=== PATIENT | male | born 1950 | race Caucasian/White ===

== ENCOUNTER → 2016-09-23 | Outpatient (CLI) | payer OTHER, MEDICARE ==
[~2016-09-23] MED LIST: ATV1 PO; ATV5 PO; FINA5TAB PO; PARO1TAB27 PO
[2016-09-23 18:20] LABS: BASO % 0.4 %; BASO ABS # 0.03 K/uL (0-0.2); COMPLETE YES; EOS % 1.7 %; HEMATOCRIT 46.1 % (42-52); IG% 0.3 %; LYMPH % 20.7 %; LYMPH ABS # 1.59 K/uL (1.2-3.4); MEAN CELL VOLUME 88.8 fL (80-100); MEAN CORPUSCULAR HEMOGLOBIN 31.4 pg (25-34); MEAN CORPUSCULAR HGB CONC 35.4 g/dl (32-36); MEAN PLATELET VOLUME 9.5 fL (7.4-10.4); MONO % 9.8 %; NEUT % 67.1 %; PLATELET COUNT 205 K/uL (130-400); RED BLOOD COUNT 5.19 M/uL (4.7-6.1); WHITE BLOOD COUNT 7.68 K/uL (4.8-10.8)
[2016-09-23 18:31] LABS: BLOOD UREA NITROGEN 13 mg/dl (7-18); BUN/CREATININE RATIO 11.4 (10-20); CALCIUM 8.7 mg/dl (8.5-10.1); CARBON DIOXIDE 29 mmol/L (21-32); CHLORIDE 105 mmol/L (98-107); CHOLESTEROL 220 mg/dl (0-200); GLUCOSE 95 mg/dl (70-99); POTASSIUM 4.2 mmol/L (3.5-5.1); SODIUM 140 mmol/L (136-145); TRIGLYCERIDES 200 mg/dl (0-150); VERY LOW DENSITY LIPOPROT CALC 40 mg/dl
[2016-09-23 18:42] LABS: ALB/GLOB RATIO 1.1 (0.9-2); ALKALINE PHOSPHATASE 93 U/L (45-117); ALT/SGPT 19 U/L (12-78); AST/SGOT 16 U/L (15-37); CHOLESTEROL/HDL RATIO 6.3; HDL CHOLESTEROL 35 mg/dl
== END | disposition home or self-care (01) ==
LOC: C.LABSPEC 17:57
PROVIDERS: ATTEND Internal Medicine
DX: R53.83 Other fatigue (principal); E78.5 Hyperlipidemia, unspecified

== ENCOUNTER → 2016-10-01 | Outpatient (CLI) | payer OTHER, MEDICARE | END | disposition home or self-care (01) | LOC: C.LAB 13:04 | PROVIDERS: ATTEND Urology | DX: R97.20 Elevated prostate specific antigen [PSA] (principal); N40.1 Benign prostatic hyperplasia with lower urinary tract symptoms ==

== ENCOUNTER → 2016-10-17 | Outpatient (CLI) | payer OTHER, MEDICARE | END | disposition home or self-care (01) | LOC: C.LABSPEC 12:42 | PROVIDERS: ATTEND Internal Medicine | DX: Z12.11 Encounter for screening for malignant neoplasm of colon (principal) ==

== ENCOUNTER → 2017-04-11 | Outpatient (CLI) | payer OTHER, MEDICARE | END | disposition home or self-care (01) | LOC: C.LAB 14:07 | PROVIDERS: ATTEND Urology | DX: N40.1 Benign prostatic hyperplasia with lower urinary tract symptoms (principal) ==

== ENCOUNTER → 2017-09-13 | Outpatient (CLI) | payer OTHER, MEDICARE ==
[2017-09-13 13:50] LABS: ALBUMIN 3.5 gm/dl (3.4-5.0); ALT/SGPT 25 U/L (12-78); AST/SGOT 20 U/L (15-37); BLOOD UREA NITROGEN 17 mg/dl (7-18); CARBON DIOXIDE 30 mmol/L (21-32); CHOLESTEROL 216 mg/dl (0-200); CREATININE 1.19 mg/dl (0.60-1.40); GLUCOSE 94 mg/dl (70-99); POTASSIUM 4.3 mmol/L (3.5-5.1); SODIUM 139 mmol/L (136-145)
[2017-09-13 13:53] LABS: ALKALINE PHOSPHATASE 78 U/L (45-117); LDL CHOLESTEROL (DIRECT) 144 mg/dl
== END | disposition home or self-care (01) ==
LOC: C.LABSPEC 12:40
PROVIDERS: ATTEND Internal Medicine
DX: I10 Essential (primary) hypertension (principal); E78.5 Hyperlipidemia, unspecified

== ENCOUNTER → 2017-10-05 | Outpatient (CLI) | payer OTHER, MEDICARE | END | disposition home or self-care (01) | LOC: C.LAB 11:33 | PROVIDERS: ATTEND Urology | DX: N52.9 Male erectile dysfunction, unspecified (principal) ==

== ENCOUNTER 2020-10-09 06:34 | Inpatient (IN) ==
[2020-10-09] MEDS ORDERED: ONDANSETRON INJ 2 MG/ML 2 ML VIAL IV STA (07:31)
[2020-10-09] MEDS ORDERED: HYDROmorphone INJ 0.5 MG/0.5 ML SYR IV PRN ×2 (07:31→11:30)
--- NOTE | 2020-10-09 07:36 | Emergency Department Note ---
History of Present Illness General Chief complaint: Abdominal Pain Stated complaint: ABD PAIN,HERNIA Time Seen by Provider: 10/09/20 07:04 Source: patient History of Present Illness Maximum Pain Intensity: 9 70-year-old male with a past medical history of an inguinal hernia hyperlipidemia, BPH, hypertension, history of prior SBO requiring surgery 5 years ago presents for evaluation of abdominal pain. Patient states he was in his sleeping when he woke up at 4 AM felling like he had to have a BM and left and right lower quadrant pain, he said at that time he felt feverish and had chills he states he has not had a bowel movement in 2 days and has not passed g as in a day. He has not taken anything for the pain, he states he regularly takes fiber supplements. He describes the pain is intermittent sharp stabbing pain is left lower and right lower quadrants, there is no radiation. He states his hernia is painful when his abdomen is painful, it is still reducible. He states he is currently painful and is requesting pain medication. Patient specifically denies chest pressure, chest pain, shortness of breath, motor symptoms, sensory symptoms, history of significant weight loss, We obtained labs and a chest x-ray yesterday as he was receiving preop evaluation by Dr. Busby for an upcoming scheduled surgery to repair his hernia. Patient states his thinks that his current presentation is similar to his prior SBO. Home Medications Medication Instructions Recorded Confirmed Type lorazepam [Ativan] 1 mg PO QPM 05/10/19 10/09/20 History losartan [Cozaar] 50 mg PO DAILY 05/10/19 10/09/20 History multivitamin 1 tab PO DAILY 05/10/19 10/09/20 History omega 7-tvv-bjl-fish oil [Fish Oil] 1 cap PO DAILY 05/10/19 10/09/20 History paroxetine HCl [Paxil] 40 mg PO DAILY 05/10/19 10/09/20 History sildenafil [Viagra] 50 mg PO DAILY PRN 05/10/19 10/09/20 History triamterene-hydrochlorothiazid 0.5 tab PO DAILY 05/10/19 10/09/20 History [Maxzide-25mg] finasteride 5 mg tablet 5 mg PO DAILY #90 tab 03/20/20 10/09/20 Rx aspirin 81 mg PO DAILY 10/09/20 10/09/20 History Allergies Allergy/AdvReac Type Severity Reaction Status Date / Time Penicillins Allergy Mild RASH Verified 10/09/20 07:27 Past Med/Surg History Medical History Anxiety Depression Essential hematuria Gross hematuria Hypertension Inguinal hernia, right Surgical History History of prostate surgery Hx of oral surgery Hx of resection of small bowel 2nd to SBO; required open laparotomy Hx of tonsillectomy Family History Father Hypertension Prostate cancer Mother Breast cancer Other Heart disease Social History Smoking Status: Former smoker Age Started Using Tobacco: 13; Age Quit Using Tobacco: 33; packs per day: 0.25; Second Hand Exposure: No; Do You Dip or Chew Tobacco: No; Tobacco Cessation Education Requested by Patient: No Hx Alcohol Use: No Hx Substance Use: No Preferred Language: Nepali Communication Ability: Effective Medical Office Coordinator Required: No Beliefs That Will Affect Care: None marital status: Current Living Situation: Spouse current occupational status: retired current occupation: registered nurse Other Information That Helps Us Care for You: No Feels Safe at Home: Yes Assistive Devices: Glasses Review of Systems See HPI for pertinent positives & negatives. Physical Exam Vital Signs Vital Signs - 24 hr 10/09/20 06:40 10/09/20 07:39 10/09/20 08:14 Temperature 36.6 C Temperature Source Temporal Artery Scan Pulse Rate 56 L 65 65 Pulse Rate from SpO2 Sensor 66 66 Respiratory Rate 16 24 20 Respiratory Effort / Characteristics Non-Labored Spontaneous Respiratory Depth Normal Blood Pressure 155/85 H 148/84 H 162/86 H Blood Pressure Mean 108 105 111 Pulse Oximetry 99 97 97 Oxygen Delivery Method Room Air Room Air Room Air Sepsis Recent Fever Within 48 Hours No Sepsis New/Unexplained Change in Mental Status N/A Sepsis Action Taken by Nursing No Action Required 10/09/20 08:30 10/09/20 09:16 10/09/20 09:30 Temperature Temperature Source Pulse Rate 68 72 73 Pulse Rate from SpO2 Sensor 67 72 74 Respiratory Rate 23 20 22 Respiratory Effort / Characteristics Respiratory Depth Blood Pressure 134/95 146/76 H 135/84 Blood Pressure Mean 108 99 101 Pulse Oximetry 97 96 97 Oxygen Delivery Method Room Air Room Air Room Air Sepsis Recent Fever Within 48 Hours Sepsis New/Unexplained Change in Mental Status Sepsis Action Taken by Nursing 10/09/20 10:00 10/09/20 10:30 10/09/20 11:28 Temperature Temperature Source Pulse Rate 71 70 73 Pulse Rate from SpO2 Sensor 71 70 72 Respiratory Rate 20 20 22 Respiratory Effort / Characteristics Respiratory Depth Blood Pressure 147/88 H 164/92 H 140/80 Blood Pressure Mean 107 116 100 Pulse Oximetry 95 97 98 Oxygen Delivery Method Room Air Room Air Room Air Sepsis Recent Fever Within 48 Hours Sepsis New/Unexplained Change in Mental Status Sepsis Action Taken by Nursing General: Lying in bed clutching his abdomen endorsing pain HEENT: Normocephalic atraumatic Neck: Normal to visual inspection, trachea midline Cardiac: Regular rate and rhythm I did not appreciate significant murmurs rubs or gallops, normal S1, normal S2, negative pedal edema, negative calf tenderness Respiratory: Clear to auscultation bilaterally with symmetrical chest expansion I did not appreciate significant wheezes, rales, rhonchi, no increased work of breathing GI: Soft, tender in the bilateral lower quadrants, mildly distended, no rebound, no guarding, negative [place] sign, negative CVA tenderness, palpated hernia, slightly reducible MSK: Moves all extremities, no significant peripheral edema. Skin: Normal to visual inspection, warm, dry, no rash Neuro: Alert and oriented x4, tired Psych: Calm and cooperative with the interview Course Administered Medications Lactated Ringer's (Lr) 1,000 mls @ 125 mls/hr IV .Q8H ANITHA Stop: 11/08/20 07:44 Last Admin: 10/09/20 13:39 Dose: 125 mls/hr Documented by: [id number] Infusion: 10/09/20 13:39 Dose: 125 mls/hr Documented by: [id number] Admin: 10/09/20 08:13 Dose: 125 mls/hr Documented by: [id number] Ciprofloxacin (Cipro / D5w) 400 mg in 200 mls @ 100 mls/hr IV Q12H ANITHA; Protocol Stop: 10/19/20 14:59 Last Admin: 10/09/20 14:29 Dose: 100 mls/hr Documented by: [id number] Metronidazole (Flagyl) 500 mg in 100 mls @ 100 mls/hr IV Q8H ANITHA Stop: 10/19/20 13:59 Last Admin: 10/09/20 14:23 Dose: 100 mls/hr Documented by: [id number] Discontinued Medications Hydromorphone HCl (Hydromorphone Inj 0.5 Mg/0.5 Ml Syr) 0.5 mg IV Q1H PRN PRN Reason: Pain Stop: 10/23/20 07:30 Last Admin: 10/09/20 08:13 Dose: 0.5 mg Documented by: [id number] Cefoxitin Sodium (Mefoxin) 2,000 mg in 60 mls @ 100 mls/hr IV NOW STA Stop: 10/09/20 09:20 Last Infusion: 10/09/20 09:50 Dose: 0 mls/hr Documented by: [id number] Admin: 10/09/20 09:14 Dose: 100 mls/hr Documented by: [id number] Lactated Ringer's (Lr) 500 mls @ 999 mls/hr IV .Q31M ONE Stop: 10/09/20 09:16 Last Infusion: 10/09/20 09:45 Dose: 0 mls/hr Documented by: [id number] Admin: 10/09/20 09:14 Dose: 999 mls/hr Documented by: [id number] Sodium Chloride (Nss 1000ml) 500 mls @ 999 mls/hr IV .Q31M ONE Stop: 10/09/20 10:52 Last Infusion: 10/09/20 12:10 Dose: 0 mls/hr Documented by: [id number] Admin: 10/09/20 11:27 Dose: 999 mls/hr Documented by: [id number] Ioversol (Optiray 320 125ml) 94 ml IV ONCE ONE Stop: 10/09/20 09:00 Last Admin: 10/09/20 09:00 Dose: 94 ml Documented by: [id number] Ondansetron HCl (Ondansetron Inj 2 Mg/Ml 2 Ml Vial) 4 mg IV NOW STA Stop: 10/09/20 07:32 Last Admin: 10/09/20 08:13 Dose: 4 mg Documented by: [id number] Medical Decision Making Differential Diagnosis Appendicitis, pyelonephritis, diverticulitis, UTI, obstruction, mesenteric ischemia, aortic pathology, inflammatory bowel disease, renal colic, PUD, pancreatitis, biliary pathology, hernia, volvulus, constipation, as well as other pathologies. Medical Records Attestation: I reviewed the patient's medical records. Home Medications Current Medication List: was personally reviewed by me Laboratory Data Attestation: I reviewed the patient's lab results. Result diagrams: 10/09/20 07:50 10/09/20 07:50 Lab Results 10/09/20 10/09/20 10/09/20 Range/Units 07:50 07:50 07:50 WBC 14.18 H (4.8-10.8) K/uL RBC 4.93 (4.7-6.1) M/uL Hgb 15.7 (14.0-18.0) g/dL Hct 45.3 (42-52) % MCV 91.9 (80-100) fL MCH 31.8 (25-34) pg MCHC 34.7 (32-36) g/dL RDW Std Deviation 44.6 (36.4-46.3) fL RDW Coeff of Juliana 13.3 (11.5-14.5) % Plt Count 191 (130-400) K/uL MPV 9.5 (7.4-10.4) fL Immature Gran % (Auto) 0.3 % Neut % (Auto) 89.8 % Lymph % (Auto) 5.3 % Giles % (Auto) 4.1 % Eos % (Auto) 0.4 % Baso % (Auto) 0.1 % Neut # (Auto) 12.73 H (1.4-6.5) K/uL Lymph # (Auto) 0.75 L (1.2-3.4) K/uL Giles # (Auto) 0.58 (0.11-0.59) K/uL Eos # (Auto) 0.06 (0-0.5) K/uL Baso # (Auto) 0.02 (0-0.2) K/uL Immature Gran # (Auto) 0.04 H (0.00-0.02) K/uL Sodium 141 (136-145) mmol/L Potassium 3.9 (3.5-5.1) mmol/L Chloride 106 (98-107) mmol/L Carbon Dioxide 30 (21-32) mmol/L Anion Gap 5.0 (3-11) BUN 18 (7-18) mg/dl Creatinine 1.26 (0.6-1.4) mg/dl Est Cr Clr Drug Dosing 63.9 ml/min Est GFR ( Amer) 65.6 Est GFR (Non-Af Amer) 56.6 BUN/Creatinine Ratio 14.6 (10-20) Glucose 133 H (70-99) mg/dl Lactate 2.6 H* (0.4-2.0) mmol/L Calcium 9.1 (8.5-10.1) mg/dl Total Bilirubin 0.6 (0.2-1) mg/dl AST 20 (15-37) U/L ALT 24 (12-78) U/L Alkaline Phosphatase 87 (45-117) U/L Total Protein 6.9 (6.4-8.2) gm/dl Albumin 3.5 (3.4-5.0) gm/dl Globulin 3.4 (2.5-4.0) gm/dl Albumin/Globulin Ratio 1.0 (0.9-2) Lipase 94 (73-393) U/L COVID-19 Eval Order SARS-CoV-2 (PCR) (Negative) Influenza Type A (PCR) (Neg) Influenza Type B (PCR) (Neg) RSV (RT-PCR) (Neg) 10/09/20 10/09/20 10/09/20 Range/Units 08:14 08:14 09:34 WBC (4.8-10.8) K/uL RBC (4.7-6.1) M/uL Hgb (14.0-18.0) g/dL Hct (42-52) % MCV (80-100) fL MCH (25-34) pg MCHC (32-36) g/dL RDW Std Deviation (36.4-46.3) fL RDW Coeff of Juliana (11.5-14.5) % Plt Count (130-400) K/uL MPV (7.4-10.4) fL Immature Gran % (Auto) % Neut % (Auto) % Lymph % (Auto) % Giles % (Auto) % Eos % (Auto) % Baso % (Auto) % Neut # (Auto) (1.4-6.5) K/uL Lymph # (Auto) (1.2-3.4) K/uL Giles # (Auto) (0.11-0.59) K/uL Eos # (Auto) (0-0.5) K/uL Baso # (Auto) (0-0.2) K/uL Immature Gran # (Auto) (0.00-0.02) K/uL Sodium (136-145) mmol/L Potassium (3.5-5.1) mmol/L Chloride (98-107) mmol/L Carbon Dioxide (21-32) mmol/L Anion Gap (3-11) BUN (7-18) mg/dl Creatinine (0.6-1.4) mg/dl Est Cr Clr Drug Dosing ml/min Est GFR ( Amer) Est GFR (Non-Af Amer) BUN/Creatinine Ratio (10-20) Glucose (70-99) mg/dl Lactate 2.9 H* (0.4-2.0) mmol/L Calcium (8.5-10.1) mg/dl Total Bilirubin (0.2-1) mg/dl AST (15-37) U/L ALT (12-78) U/L Alkaline Phosphatase (45-117) U/L Total Protein (6.4-8.2) gm/dl Albumin (3.4-5.0) gm/dl Globulin (2.5-4.0) gm/dl Albumin/Globulin Ratio (0.9-2) Lipase (73-393) U/L COVID-19 Eval Order [facility]Rsv at [facility] SARS-CoV-2 (PCR) NEGATIVE (Negative) Influenza Type A (PCR) Negative (Neg) Influenza Type B (PCR) Negative (Neg) RSV (RT-PCR) Negative (Neg) Imaging Data Radiologist's Impression: Abdomen/Pelvis CT 10/09/20 07:49 CT SCAN OF THE ABDOMEN AND PELVIS WITH IV CONTRAST CLINICAL HISTORY: Generalized abdominal pain. COMPARISON STUDY: Abdominal CT dated 09/08/2011. TECHNIQUE: Following the IV administration of 94 cc of Optiray 320, CT scan of the abdomen and pelvis is performed from the lung bases to the proximal femora. Images are reviewed in the axial, sagittal, and coronal planes. IV contrast was administered without complication. A small amount of oral contrast was utilized. A dose lowering technique was utilized adhering to the principles of ALARA. CT DOSE: 866.12 mGy.cm FINDINGS: Lung bases: The heart is top normal in size and without pericardial effusion. The coronary arteries are densely calcified. There is a small hiatal hernia. A 3 mm left lower lobe pulmonary nodule is seen on image #17. The lung bases are otherwise clear noting bibasilar scarring/atelectasis. Liver: The contrast-enhanced liver is normal in size, contour, and attenuation. There is no intrahepatic biliary ductal dilatation. The hepatic veins and portal veins are patent. Gallbladder: Unremarkable. Spleen: Normal in size and attenuation. Pancreas: Unremarkable. Adrenal glands: Unremarkable. Kidneys: The contrast enhanced kidneys demonstrate mild cortical atrophy and are without hydronephrosis. The kidneys enhance symmetrically. Abdominal vasculature: The abdominal aorta is normal in course and caliber noting moderate atherosclerotic calcification. Bowel: There is moderate constipation. There is focal narrowing of the colon seen at the hepatic flexure on image #201. A right inguinal hernia contains a nonobstructed segment of the sigmoid colon. There is wall thickening and pericolonic inflammation seen involving the distal descending colon and sigmoid to the level of the hernia. No bowel obstruction is identified. Enteric contrast reaches the distal small bowel. The appendix is normal as visualized. Peritoneum: There is trace free fluid in the pelvis. No intraperitoneal free air is identified. Lymphadenopathy: None. Pelvic viscera: The prostate gland is markedly enlarged and heterogeneous, measuring 7.1 cm in transverse diameter. There is median lobe hypertrophy. The bladder wall is thickened and trabeculated indicating chronic outlet obstruction. There is a 2 cm enhancing nodule identified along the right wall of the bladder seen on axial image #382. There are right larger than left inguinal hernias. The right inguinal hernia contains a nonobstructed segment of the sigmoid colon. Skeletal structures: The skeletal structures are osteopenic. There is moderate lumbosacral spondylosis. No lytic or blastic lesions are seen. IMPRESSION: 1. There is no bowel obstruction. 2. A large right inguinal hernia contains a nonobstructed segment of the sigmoid colon. 3. There is wall thickening with pericolonic inflammation seen involving the distal descending colon and throughout the sigmoid to the level of the hernia, likely representing a nonspecific colitis. Intermittent obstruction could also potentially have this appearance but is considered less likely due to the length of involvement. 4. There is a 2 cm enhancing nodule along the right wall of the bladder. This should be considered bladder cancer until proven otherwise and follow-up with urology is recommended. 5. There is focal narrowing identified within the right colon at the level of the hepatic flexure. This is not well evaluated by CT, but raises concern for a mucosal lesion. Follow-up with colonoscopy is recommended. 6. Moderate constipation. 7. Marked prostatomegaly with evidence of chronic bladder outlet obstruction. 8. Additional findings as above. ACT 112: Positive. There are findings on this exam that require communication between the performing entity and the patient following Patient Test Result Information Act ([place] Act 112) guidelines. Electronically signed by: Malcolm Fowler M.D. 10/09/2020 9:29 AM ECG Data Attestation: I personally reviewed and interpreted this ECG as follows: Indication: + abdominal pain Rate (beats per minute): 63 Rhythm: + normal sinus ECG Intervals/blocks: + Normal QRS and + Normal QT-c ECG [place]: + Normal ECG ST segments: + Normal ST segments ECG Findings: no PACs and no PVCs Comparison ECG Date: no prior available Blood Pressure Blood Pressure Findings: Elevated blood pressure Blood Pressure Disposition: further management by hospitalist MDM Narrative I evaluated this patient with the resident, Fredi Jung MD. This patient was evaluated and appeared to be in no significant distress. IV access was obtained and laboratory work was drawn. An order was placed for cardiac monitoring. The patient was noted to be in a normal sinus rhythm at 65 bpm. IV hydration was initiated. The patient was medicated with IV Dilaudid and Zofran. Patient did have a successful bowel movement in the emergency department prior to any intervention. He denies any gross blood in the stool. CT imaging of the abdomen pelvis was performed. There is evidence of a bladder nodule, a focal narrowing of the right hemicolon, a colitis of the descending colon and a large right inguinal hernia with a loop of sigmoid that is nonobstructive. Patient is noted to have a elevated lactate and WBC. He did receive 2 g of IV Mefoxin. Patient has no evidence of a high-grade bowel obstruction as he has no vomiting and is passing stool/gas. His abdomen is soft to my exam. Case was discussed with the hospitalist service who will evaluate the patient for admission and further management. Patient was educated to the findings and agrees with the plan for admission. Impression & Plan Elevated serum lactate dehydrogenase, SBO (small bowel obstruction), Colonic stricture, Inguinal hernia, right, Mass of bladder Discharge Plan Visit Data Chief Complaint: Abdominal Pain Stated Complaint: ABD PAIN,HERNIA ED Provider: Ladonna Brown ED Midlevel Provider: John Jung I. Discharge Problem: Elevated serum lactate dehydrogenase, SBO (small bowel obstruction), Colonic stricture, Inguinal hernia, right, Mass of bladder Patient Disposition: Admitted As Inpatient Discharge Instructions Interventions: ED Discharge Assessment Last Done: 10/09/20 13:11 Resident Activity Tracking Resident Involvement: Resident Care Provided Care Provided: Adult Hospital Medicine
[2020-10-09 08:09] LABS: Basophils # (auto) 0.02 K/uL (0-0.2); Basophils % (auto) 0.1 %; Eosinophils # (auto) 0.06 K/uL (0-0.5); Eosinophils % (auto) 0.4 %; Hematocrit (blood only) 45.3 % (42-52); Hemoglobin 15.7 g/dL (14.0-18.0); Immature Granulocytes # (auto) 0.04 K/uL (0.00-0.02); Immature Granulocytes % (auto) 0.3 %; Lymphocytes # (auto) 0.75 K/uL (1.2-3.4); Lymphocytes % (auto) 5.3 %; Mean Corpuscular Hemoglobin 31.8 pg (25-34); Mean Corpuscular Hgb Conc 34.7 g/dL (32-36); Mean Corpuscular Volume 91.9 fL (80-100); Mean Platelet Volume 9.5 fL (7.4-10.4); Monocytes # (auto) 0.58 K/uL (0.11-0.59); Monocytes % (auto) 4.1 %; Neutrophils # (auto) 12.73 K/uL (1.4-6.5); Neutrophils % (auto) 89.8 %; Platelet Count 191 K/uL (130-400); RDW Coefficient of Variation 13.3 % (11.5-14.5); RDW Standard Deviation 44.6 fL (36.4-46.3); Red Blood Count 4.93 M/uL (4.7-6.1); White Blood Count 14.18 K/uL (4.8-10.8)
[2020-10-09] MEDS: LACTATED RINGER'S 1,000 ML IV SCH ×3 (08:13→21:34)
[2020-10-09 08:27] LABS: POC Urine Bilirubin Negative (Negative); POC Urine Blood Negative (Negative); POC Urine Glucose Normal (Normal); POC Urine Ketones Negative (Negative); POC Urine Leukocytes Negative (Negative); POC Urine Protein Negative (Negative); POC Urine Urobilinogen Normal (Normal)
[2020-10-09 08:31] LABS: Appearance Urine Clear (Clear); Bilirubin Urine Negative (Negative); Blood Urine Negative (Negative); Color Urine Dark Yellow; Glucose Urine UA Negative (Negative); Ketones Urine Trace (Negative); Leukocyte Esterase Urine Negative (Negative); Nitrite Urine Negative (Negative); Protein Urine Negative (Negative); Specific Gravity Urine 1.015 (1.000-1.030); Urobilinogen Urine Negative (Negative)
[2020-10-09 08:40] LABS: Albumin Level 3.5 gm/dl (3.4-5.0); BUN Creatinine Ratio 14.6 (10-20); Calcium 9.1 mg/dl (8.5-10.1); Creatinine Clr Calc Pharmacy 63.9 ml/min; Est GFR (African American) 65.6; Est GFR (Non-African American) 56.6; Potassium 3.9 mmol/L (3.5-5.1)
[2020-10-09 08:43] LABS: Bilirubin,Total 0.6 mg/dl (0.2-1); Globulin 3.4 gm/dl (2.5-4.0); Total Protein 6.9 gm/dl (6.4-8.2)
[2020-10-09] MEDS ORDERED: cefOXitin 2,000 MG/60 ML BAG IV STA (08:45)
[2020-10-09] MEDS ORDERED: LACTATED RINGER'S 500 ML IV ONE (08:46)
[2020-10-09] MEDS ORDERED: OPTIRAY 320 125ml IV ONE (08:59)
[2020-10-09 09:13] LABS: Influenza A virus by PCR Negative (Neg); Influenza B virus by PCR Negative (Neg); RSV by PCR Negative (Neg); SARS CoV2 RNA(COVID-19) InHosp NEGATIVE (Negative)
--- NOTE | 2020-10-09 09:30 | CT Scan Report ---
CT SCAN OF THE ABDOMEN AND PELVIS WITH IV CONTRAST CLINICAL HISTORY: Generalized abdominal pain. COMPARISON STUDY: Abdominal CT dated 09/08/2011. TECHNIQUE: Following the IV administration of 94 cc of Optiray 320, CT scan of the abdomen and pelvi s is performed from the lung bases to the proximal femora. Images are reviewed in the axial, sagittal , and coronal planes. IV contrast was administered without complication. A small amount of oral contr ast was utilized. A dose lowering technique was utilized adhering to the principles of ALARA. CT DOSE: 866.12 mGy.cm FINDINGS: Lung bases: The heart is top normal in size and without pericardial effusion. The coronary arteries a re densely calcified. There is a small hiatal hernia. A 3 mm left lower lobe pulmonary nodule is seen on image #17. The lung bases are otherwise clear noting bibasilar scarring/atelectasis. Liver: The contrast-enhanced liver is normal in size, contour, and attenuation. There is no intrahepa tic biliary ductal dilatation. The hepatic veins and portal veins are patent. Gallbladder: Unremarkable. Spleen: Normal in size and attenuation. Pancreas: Unremarkable. Adrenal glands: Unremarkable. Kidneys: The contrast enhanced kidneys demonstrate mild cortical atrophy and are without hydronephros is. The kidneys enhance symmetrically. Abdominal vasculature: The abdominal aorta is normal in course and caliber noting moderate atheroscle rotic calcification. Bowel: There is moderate constipation. There is focal narrowing of the colon seen at the hepatic flex ure on image #201. A right inguinal hernia contains a nonobstructed segment of the sigmoid colon. The re is wall thickening and pericolonic inflammation seen involving the distal descending colon and sig moid to the level of the hernia. No bowel obstruction is identified. Enteric contrast reaches the dis lizzie small bowel. The appendix is normal as visualized. Peritoneum: There is trace free fluid in the pelvis. No intraperitoneal free air is identified. Lymphadenopathy: None. Pelvic viscera: The prostate gland is markedly enlarged and heterogeneous, measuring 7.1 cm in transv erse diameter. There is median lobe hypertrophy. The bladder wall is thickened and trabeculated indic ating chronic outlet obstruction. There is a 2 cm enhancing nodule identified along the right wall of the bladder seen on axial image #382. There are right larger than left inguinal hernias. The right i nguinal hernia contains a nonobstructed segment of the sigmoid colon. Skeletal structures: The skeletal structures are osteopenic. There is moderate lumbosacral spondylosi s. No lytic or blastic lesions are seen. IMPRESSION: 1. There is no bowel obstruction. 2. A large right inguinal hernia contains a nonobstructed segment of the sigmoid colon. 3. There is wall thickening with pericolonic inflammation seen involving the distal descending colon and throughout the sigmoid to the level of the hernia, likely representing a nonspecific colitis. Int ermittent obstruction could also potentially have this appearance but is considered less likely due t o the length of involvement. 4. There is a 2 cm enhancing nodule along the right wall of the bladder. This should be considered bl adder cancer until proven otherwise and follow-up with urology is recommended. 5. There is focal narrowing identified within the right colon at the level of the hepatic flexure. Th is is not well evaluated by CT, but raises concern for a mucosal lesion. Follow-up with colonoscopy i s recommended. 6. Moderate constipation. 7. Marked prostatomegaly with evidence of chronic bladder outlet obstruction. 8. Additional findings as above. ACT 112: Positive. There are findings on this exam that require communication between the performing entity and the patient following Patient Test Result Information Act ([place] Act 112) guidelines. Electronically signed by: Malcolm Fowler M.D. 10/09/2020 9:29 AM
[2020-10-09] MEDS ORDERED: SODIUM CHLORIDE 0.9% 1000ML 500 ML IV ONE (10:22)
--- NOTE | 2020-10-09 10:56 | History & Physical Report ---
Date of Service October 09, 2020 Assessment & Plan (1) Inguinal hernia, right: History would suggest that perhaps he had transient incarceration of the sigmoid colon in his right inguinal hernia that spontaneously resolved over several hours. This perhaps led to transient ischemia of the distal colon leading to mild inflammation/colitis. The hernia is now reducible and his pain is markedly improved. CT abd/pelvis and mild lactic acidosis suggests he likely had transient ischemia. I do not think his colonic inflammation is infectious in etiology; history does not suggest such. Will keep him NPO, give him IV fluids, IV pain meds prn, and will ask general surgery to see in consult. Given the mild colitis will cover with IV cipro/flagyl. He received 1 dose of cefoxitin in the ER. (2) Lactic acidosis: see above (3) Colitis: Suspect ischemia rather than infectious. See above. Repeat lactate pending. NPO, IVF. (4) Abnormal CT scan, colon: Mucosal lesion in hepatic flexure?? Will need endoscopic evaluation in the near future for such. (5) Hyperlipidemia: Hold fish oil (6) BPH loc w/o ur obs/LUTS: Cont outpatient meds [place] [facility] [place] [facility] (7) Mass of bladder: Will need nonemergent cystoscopy (8) Hypertension: hold HCTZ continue losartan (9) DVT prophylaxis: lovenox daily starting tomorrow updated at bedside History of Present Illness Chief Complaint: abdominal pain Primary Care Provider: Saeed Trujillo MD Pleasant 70yo male with HTN and BPH along with long-standing right-sided inguinal hernia who presented this am after developing severe RLQ and LLQ abdominal pain this am at 0400. Pain awoke him from sleep. Pain was sharp, intense, and came "in waves." The pain was worst over the inguinal hernia on the right. The hernia was "firm" to touch and he tried pushing the bowel up into the abdomen. It was difficult initially but ultimately it seemed to slide back up. He had diaphoresis, chills, subjective fever and nausea. Never had emesis. He felt like he had to have a bowel movement and went back/forth from bed to bathroom without any success. He finally came to the ER this am to be evaluated. While being worked up he had a large liquid, nonbloody bowel movement. Following this and IV dilaudid his pain is resolved and he "feels nearly back to normal." Coincidentally he saw Dr Rogelio Garcia yesterday in gen surgery clinic for the right inguinal hernia and was to have inguinal hernia repair w/ mesh later this month. Otherwise he has been in his usual health with no GI or complaints. 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 Allergies Allergy/AdvReac Type Severity Reaction Status Date / Time Penicillins Allergy Mild RASH Verified 10/09/20 07:27 Home Medications Medication Instructions Recorded Confirmed Type lorazepam [Ativan] 1 mg PO QPM 05/10/19 10/09/20 History losartan [Cozaar] 50 mg PO DAILY 05/10/19 10/09/20 History multivitamin 1 tab PO DAILY 05/10/19 10/09/20 History omega 0-xyx-ljt-fish oil [Fish Oil] 1 cap PO DAILY 05/10/19 10/09/20 History paroxetine HCl [Paxil] 40 mg PO DAILY 05/10/19 10/09/20 History sildenafil [Viagra] 50 mg PO DAILY PRN 05/10/19 10/09/20 History triamterene-hydrochlorothiazid 0.5 tab PO DAILY 05/10/19 10/09/20 History [Maxzide-25mg] finasteride 5 mg tablet 5 mg PO DAILY #90 tab 03/20/20 10/09/20 Rx aspirin 81 mg PO DAILY 10/09/20 10/09/20 History Past Med/Surg History Medical History Anxiety Depression Essential hematuria Gross hematuria Hypertension Inguinal hernia, right Surgical History History of prostate surgery Hx of oral surgery Hx of resection of small bowel 2nd to SBO; required open laparotomy Hx of tonsillectomy Family History Father Hypertension Prostate cancer Mother Breast cancer Other Heart disease Social History Smoking Status: Former smoker Age Started Using Tobacco: 13; Age Quit Using Tobacco: 33; packs per day: 0.25; Second Hand Exposure: No; Do You Dip or Chew Tobacco: No; Tobacco Cessation Education Requested by Patient: No Hx Alcohol Use: No Hx Substance Use: No Preferred Language: Bulgarian Communication Ability: Effective Hog Room Supervisor Required: No Beliefs That Will Affect Care: None marital status: Current Living Situation: Spouse current occupational status: retired current occupation: registered nurse Other Information That Helps Us Care for You: No Feels Safe at Home: Yes Assistive Devices: None Review of Systems Constitutional: + fever (subjective), + chills, + sweats and + fatigue (last few days ); no weight loss Eyes: no worsening vision Ear, Nose, Mouth, Throat: no loss of taste or smell Respiratory: no dyspnea Cardiovascular: no chest pain Gastrointestinal: + abdominal pain, + nausea and + diarrhea/loose stools; no vomiting and no blood in stools Genitourinary: no dysuria Musculoskeletal: no joint pain Integumentary: no rash Neurologic: no localized weakness and no loss of sensation Psychiatric: no depression Endocrine: denies diabetes Hematologic / Lymphatic: no easy bleeding Physical Exam Constitutional: well developed and well nourished; no acute distress and no altered mental status Eyes: PERRL ENMT: external ear and nose normal, oropharynx normal Neck: trachea midline, no thyromegaly Respiratory: normal respiratory effort, lungs clear to auscultation Cardiovascular: Rate/Rhythm: regular rate and regular rhythm Heart Sounds: normal S1 and normal S2; no murmur Vessels: posterior tibial pulses present and dorsalis pedis pulses present; no JVD Extremities: no edema Gastrointestinal (Abdomen): Inspection/Auscultation: + abdomen distended (mild) and normal bowel sounds Percussion/Palpation: + abdomen tender (RLQ, scant LLQ) and + hernia (right inguinal - reducible; mildly tender over this region); no guarding, abdomen not rigid and no hepatosplenomegaly Musculoskeletal: no cyanosis or clubbing, extremities motor strength 5/5 Skin: no rashes, warm and dry Neurologic: deep tendon reflexes 2+ bilaterally and moves all extremities Psychiatric: A+Ox3, euthymic affect Lymphatic: no cervical lymphadenopathy Results & Data Results & Data ([facility]) Vital Signs (Past 12 Hours) Vital Signs Temp Pulse Resp BP Pulse Ox 04/08/21 09:30 73 22 135/84 97 10/09/20 09:16 72 20 146/76 H 96 10/09/20 08:30 68 23 134/95 97 10/09/20 08:14 65 20 162/86 H 97 10/09/20 07:39 65 24 148/84 H 97 10/09/20 06:40 36.6 C 56 L 16 155/85 H 99 Laboratory Results Laboratory Results - last 24 hr 10/09/20 10/09/20 10/09/20 07:50 07:50 07:50 WBC 14.18 H RBC 4.93 Hgb 15.7 Hct 45.3 MCV 91.9 MCH 31.8 MCHC 34.7 RDW Std Deviation 44.6 RDW Coeff of Juliana 13.3 Plt Count 191 MPV 9.5 Immature Gran % (Auto) 0.3 Neut % (Auto) 89.8 Lymph % (Auto) 5.3 Woods % (Auto) 4.1 Eos % (Auto) 0.4 Baso % (Auto) 0.1 Neut # (Auto) 12.73 H Lymph # (Auto) 0.75 L Woods # (Auto) 0.58 Eos # (Auto) 0.06 Baso # (Auto) 0.02 Immature Gran # (Auto) 0.04 H Sodium 141 Potassium 3.9 Chloride 106 Carbon Dioxide 30 Anion Gap 5.0 BUN 18 Creatinine 1.26 Est Cr Clr Drug Dosing 63.9 Est GFR ( Amer) 65.6 Est GFR (Non-Af Amer) 56.6 BUN/Creatinine Ratio 14.6 Glucose 133 H Lactate 2.6 H* Calcium 9.1 Total Bilirubin 0.6 AST 20 ALT 24 Alkaline Phosphatase 87 Total Protein 6.9 Albumin 3.5 Globulin 3.4 Albumin/Globulin Ratio 1.0 Lipase 94 Urine Color Urine Appearance Urine pH POC Urine pH Ur Specific [place] Urine Protein POC Urine Protein Urine Glucose (UA) POC Ur Glucose (UA) Urine Ketones POC Urine Ketones Urine Blood POC Urine Blood Urine Nitrite POC Urine Nitrite Urine Bilirubin POC Urine Bilirubin Urine Urobilinogen POC Urine Urobilinogen Ur Leukocyte Esterase POC U Leukocyte Esteras COVID-19 Eval Order SARS-CoV-2 (PCR) Influenza Type A (PCR) Influenza Type B (PCR) RSV (RT-PCR) 10/09/20 10/09/20 10/09/20 08:14 08:14 09:34 WBC RBC Hgb Hct MCV MCH MCHC RDW Std Deviation RDW Coeff of Juliana Plt Count MPV Immature Gran % (Auto) Neut % (Auto) Lymph % (Auto) Woods % (Auto) Eos % (Auto) Baso % (Auto) Neut # (Auto) Lymph # (Auto) Woods # (Auto) Eos # (Auto) Baso # (Auto) Immature Gran # (Auto) Sodium Potassium Chloride Carbon Dioxide Anion Gap BUN Creatinine Est Cr Clr Drug Dosing Est GFR ( Amer) Est GFR (Non-Af Amer) BUN/Creatinine Ratio Glucose Lactate 2.9 H* Calcium Total Bilirubin AST ALT Alkaline Phosphatase Total Protein Albumin Globulin Albumin/Globulin Ratio Lipase Urine Color Urine Appearance Urine pH POC Urine pH Ur Specific [place] Urine Protein POC Urine Protein Urine Glucose (UA) POC Ur Glucose (UA) Urine Ketones POC Urine Ketones Urine Blood POC Urine Blood Urine Nitrite POC Urine Nitrite Urine Bilirubin POC Urine Bilirubin Urine Urobilinogen POC Urine Urobilinogen Ur Leukocyte Esterase POC U Leukocyte Esteras COVID-19 Eval Order CovFluRsv at [facility] SARS-CoV-2 (PCR) NEGATIVE Influenza Type A (PCR) Negative Influenza Type B (PCR) Negative RSV (RT-PCR) Negative 10/09/20 10/09/20 Unknown Unknown WBC RBC Hgb Hct MCV MCH MCHC RDW Std Deviation RDW Coeff of Juliana Plt Count MPV Immature Gran % (Auto) Neut % (Auto) Lymph % (Auto) Woods % (Auto) Eos % (Auto) Baso % (Auto) Neut # (Auto) Lymph # (Auto) Woods # (Auto) Eos # (Auto) Baso # (Auto) Immature Gran # (Auto) Sodium Potassium Chloride Carbon Dioxide Anion Gap BUN Creatinine Est Cr Clr Drug Dosing Est GFR ( Amer) Est GFR (Non-Af Amer) BUN/Creatinine Ratio Glucose Lactate Calcium Total Bilirubin AST ALT Alkaline Phosphatase Total Protein Albumin Globulin Albumin/Globulin Ratio Lipase Urine Color Dark Yellow Urine Appearance Clear Urine pH 7.0 POC Urine pH Pending Ur Specific [place] 1.015 Urine Protein Negative POC Urine Protein Negative Urine Glucose (UA) Negative POC Ur Glucose (UA) Normal Urine Ketones Trace H POC Urine Ketones Negative Urine Blood Negative POC Urine Blood Negative Urine Nitrite Negative POC Urine Nitrite Pending Urine Bilirubin Negative POC Urine Bilirubin Negative Urine Urobilinogen Negative POC Urine Urobilinogen Normal Ur Leukocyte Esterase Negative POC U Leukocyte Esteras Negative COVID-19 Eval Order SARS-CoV-2 (PCR) Influenza Type A (PCR) Influenza Type B (PCR) RSV (RT-PCR) Diagnostic Findings Abdomen/Pelvis CT 10/09/20 07:49 CT SCAN OF THE ABDOMEN AND PELVIS WITH IV CONTRAST CLINICAL HISTORY: Generalized abdominal pain. COMPARISON STUDY: Abdominal CT dated 09/08/2011. TECHNIQUE: Following the IV administration of 94 cc of Optiray 320, CT scan of the abdomen and pelvis is performed from the lung bases to the proximal femora. Images are reviewed in the axial, sagittal, and coronal planes. IV contrast was administered without complication. A small amount of oral contrast was utilized. A dose lowering technique was utilized adhering to the principles of ALARA. CT DOSE: 866.12 mGy.cm FINDINGS: Lung bases: The heart is top normal in size and without pericardial effusion. The coronary arteries are densely calcified. There is a small hiatal hernia. A 3 mm left lower lobe pulmonary nodule is seen on image #17. The lung bases are otherwise clear noting bibasilar scarring/atelectasis. Liver: The contrast-enhanced liver is normal in size, contour, and attenuation. There is no intrahepatic biliary ductal dilatation. The hepatic veins and portal veins are patent. Gallbladder: Unremarkable. Spleen: Normal in size and attenuation. Pancreas: Unremarkable. Adrenal glands: Unremarkable. Kidneys: The contrast enhanced kidneys demonstrate mild cortical atrophy and are without hydronephrosis. The kidneys enhance symmetrically. Abdominal vasculature: The abdominal aorta is normal in course and caliber noting moderate atherosclerotic calcification. Bowel: There is moderate constipation. There is focal narrowing of the colon seen at the hepatic flexure on image #201. A right inguinal hernia contains a nonobstructed segment of the sigmoid colon. There is wall thickening and pericolonic inflammation seen involving the distal descending colon and sigmoid to the level of the hernia. No bowel obstruction is identified. Enteric contrast reaches the distal small bowel. The appendix is normal as visualized. Peritoneum: There is trace free fluid in the pelvis. No intraperitoneal free air is identified. Lymphadenopathy: None. Pelvic viscera: The prostate gland is markedly enlarged and heterogeneous, measuring 7.1 cm in transverse diameter. There is median lobe hypertrophy. The bladder wall is thickened and trabeculated indicating chronic outlet obstruction. There is a 2 cm enhancing nodule identified along the right wall of the bladder seen on axial image #382. There are right larger than left inguinal hernias. The right inguinal hernia contains a nonobstructed segment of the sigmoid colon. Skeletal structures: The skeletal structures are osteopenic. There is moderate lumbosacral spondylosis. No lytic or blastic lesions are seen. IMPRESSION: 1. There is no bowel obstruction. 2. A large right inguinal hernia contains a nonobstructed segment of the sigmoid colon. 3. There is wall thickening with pericolonic inflammation seen involving the distal descending colon and throughout the sigmoid to the level of the hernia, likely representing a nonspecific colitis. Intermittent obstruction could also potentially have this appearance but is considered less likely due to the length of involvement. 4. There is a 2 cm enhancing nodule along the right wall of the bladder. This should be considered bladder cancer until proven otherwise and follow-up with urology is recommended. 5. There is focal narrowing identified within the right colon at the level of the hepatic flexure. This is not well evaluated by CT, but raises concern for a mucosal lesion. Follow-up with colonoscopy is recommended. 6. Moderate constipation. 7. Marked prostatomegaly with evidence of chronic bladder outlet obstruction. 8. Additional findings as above. ACT 112: Positive. There are findings on this exam that require communication between the performing entity and the patient following Patient Test Result Information Act ([place] Act 112) guidelines. Electronically signed by: Malcolm Fowler M.D. 10/09/2020 9:29 AM Code Status & VTE Plan Code Status full code VTE Prophylaxis Plan VTE Prophylaxis will be ordered: Yes PG Care Time/CCT Total # of Minutes Spent Total Time Spent with Patient: Total time spent is greater than 50% in coordination of care (as documented) at patient's floor/unit and/or counseling patient: Coding Level of Care Code 13980 Initial Inpt Care Lvl 2 Diagnoses Inguinal hernia, right K40.90 Lactic acidosis E87.[address] scan, colon R93.3 Hyperlipidemia E78.5 BPH loc w/o ur obs/LUTS N40.0 Mass of bladder N32.89 Hypertension I10 DVT prophylaxis Z29.9
[2020-10-09] MEDS ORDERED: ACETAMINOPHEN 325 MG TAB PO PRN (13:36)
[2020-10-09] MEDS ORDERED: ONDANSETRON INJ 2 MG/ML 2 ML VIAL IV PRN (13:36)
[2020-10-09] MEDS: metroNIDAZOLE 500 MG/100 ML BAG IV SCH ×2 (14:23→21:34)
[2020-10-09] MEDS: CIPROFLOXACIN / D5W 400 MG/200 ML BAG IV SCH (14:29)
--- NOTE | 2020-10-09 14:38 | Surgery Consultation ---
Date of Consultation October 09, 2020 Assessment & Plan (1) Inguinal hernia, right: Patient was seen with Dr. Garcia. Will plan for right inguinal hernia repair tomorrow. Supervising Physician Co-Signing Physician Notes I had seen the patient in the office day before for right inguinal hernia with schedule for elective surgery approximately 3 weeks of the events as described by Radha meredith unfolded History of Present Illness Attending Physician: Ross Brothers History of Present Illness 70 y/o male scheduled for right inguinal hernia repair in a few weeks awoke this morning with pain and a bulge he was not able to reduce any longer. Came to ED, had CT showing incarcerated colon but since then has been able to reduce the hernia and symptoms are resolved. He was admitted by hospitalist. Allergies Allergy/AdvReac Type Severity Reaction Status Date / Time Penicillins Allergy Mild RASH Verified 10/09/20 07:27 Home Medications Medication Instructions Recorded Confirmed Type lorazepam [Ativan] 1 mg PO QPM 05/10/19 10/09/20 History losartan [Cozaar] 50 mg PO DAILY 05/10/19 10/09/20 History multivitamin 1 tab PO DAILY 05/10/19 10/09/20 History omega 2-wqm-hjn-fish oil [Fish Oil] 1 cap PO DAILY 05/10/19 10/09/20 History paroxetine HCl [Paxil] 40 mg PO DAILY 05/10/19 10/09/20 History sildenafil [Viagra] 50 mg PO DAILY PRN 05/10/19 10/09/20 History triamterene-hydrochlorothiazid 0.5 tab PO DAILY 05/10/19 10/09/20 History [Maxzide-25mg] finasteride 5 mg tablet 5 mg PO DAILY #90 tab 03/20/20 10/09/20 Rx aspirin 81 mg PO DAILY 10/09/20 10/09/20 History Patient History Medical History Anxiety Depression Essential hematuria Gross hematuria Hypertension Inguinal hernia, right Surgical History History of prostate surgery Hx of oral surgery Hx of resection of small bowel 2nd to SBO; required open laparotomy Hx of tonsillectomy Family History Father Hypertension Prostate cancer Mother Breast cancer Other Heart disease Social History Smoking Status: Former smoker Age Started Using Tobacco: 13; Age Quit Using Tobacco: 33; packs per day: 0.25; Second Hand Exposure: No; Do You Dip or Chew Tobacco: No; Tobacco Cessation Education Requested by Patient: No Hx Alcohol Use: No Hx Substance Use: No Preferred Language: Nepali Communication Ability: Effective Valve Seater Operator Required: No Beliefs That Will Affect Care: None marital status: Current Living Situation: Spouse current occupational status: retired current occupation: registered nurse Other Information That Helps Us Care for You: No Feels Safe at Home: Yes Assistive Devices: None Review of Systems Constitutional: no fever and no chills Gastrointestinal: no nausea and no vomiting Physical Exam Constitutional: WD/WN, vitals as above Gastrointestinal (Abdomen): Inspection/Auscultation: + visible herniation (r educible right inguinal hernia) Percussion/Palpation: abdomen soft; abdomen nontender Results & Data ([facility]) Vital Signs (Past 12 Hours) Vital Signs Temp Pulse Pulse Resp BP BP Pulse Ox 10/09/20 13:41 36.7 C 77 18 152/87 H 95 10/09/20 12:59 18 131/75 97 10/09/20 12:00 86 25 H 134/73 98 10/09/20 11:30 72 23 141/87 H 96 10/09/20 11:28 73 22 140/80 98 10/09/20 10:30 70 20 164/92 H 97 10/09/20 10:00 71 20 147/88 H 95 10/09/20 09:30 73 22 135/84 97 10/09/20 09:16 72 20 146/76 H 96 10/09/20 08:30 68 23 134/95 97 10/09/20 08:14 65 20 162/86 H 97 10/09/20 07:39 65 24 148/84 H 97 10/09/20 06:40 36.6 C 56 L 16 155/85 H 99 PG Care Time/CCT Total # of Minutes Spent Total Time Spent with Patient: Total time spent is greater than 50% in coordination of care (as documented) at patient's floor/unit and/or counseling patient: Coding Level of Care Code 80335 Initial Inpt Care Lvl 1 Diagnoses Inguinal hernia, right K40.90
--- NOTE | 2020-10-09 18:11 | Anesthesiology Consultation ---
Date of Service October 09, 2020 Assessment & Plan Chart Review Chart Review: Acceptable Risk for Surgery and Patient NOT seen in Pre Admission Testing History Surgery Operation Date: 10/10/20 10:40 Proposed Procedures p Right Inguinal Hernia Repair - Anshul Garcia MD, FACS Height/Weight Height: 6 ft Weight: 95.8 kg Allergies Allergy/AdvReac Type Severity Reaction Status Date / Time Penicillins Allergy Mild RASH Verified 10/09/20 07:27 Medications Home Medications Medication Instructions Recorded Confirmed Last Taken lorazepam [Ativan] 1 mg PO QPM 05/10/19 10/09/20 10/08/20 losartan [Cozaar] 50 mg PO DAILY 05/10/19 10/09/20 10/08/20 multivitamin 1 tab PO DAILY 05/10/19 10/09/20 10/08/20 omega 0-hvd-mvl-fish oil [Fish Oil] 1 cap PO DAILY 05/10/19 10/09/20 10/08/20 paroxetine HCl [Paxil] 40 mg PO DAILY 05/10/19 10/09/20 10/08/20 sildenafil [Viagra] 50 mg PO DAILY PRN 05/10/19 10/09/20 Unknown triamterene-hydrochlorothiazid 0.5 tab PO DAILY 05/10/19 10/09/20 10/08/20 [Maxzide-25mg] finasteride 5 mg tablet 5 mg PO DAILY #90 tab 03/20/20 10/09/20 10/08/20 aspirin 81 mg PO DAILY 10/09/20 10/09/20 10/08/20 Active Medications Generic Name Dose Route Start Last Admin Trade Name Christina PRN Reason Stop Dose Admin Lactated Ringer's 1,000 mls @ 125 mls/hr 10/09/20 07:45 10/09/20 13:39 Lr IV 11/08/20 07:44 125 mls/hr .Q8H ANITHA Administration Ciprofloxacin 400 mg in 200 mls @ 100 mls/hr 10/09/20 15:00 10/09/20 16:29 Cipro / D5w IV 10/19/20 14:59 Infused Q12H ANITHA Infusion Protocol Metronidazole 500 mg in 100 mls @ 100 mls/hr 10/09/20 14:00 10/09/20 15:23 Flagyl IV 10/19/20 13:59 Infused Q8H ANITHA Infusion Past Medical History Medical History Anxiety Depression Essential hematuria Gross hematuria Hypertension Inguinal hernia, right Past Family History Family History Father Hypertension Prostate cancer Mother Breast cancer Other Heart disease Past Surgical History Surgical History History of prostate surgery Hx of oral surgery Hx of resection of small bowel 2nd to SBO; required open laparotomy Hx of tonsillectomy Social History Smoking Status: Former smoker Do You Dip or Chew Tobacco: No Hx Alcohol Use: No Hx Substance Use: No Physical Exam Vital Signs Last Vital Signs Temp 36.9 C 10/09/20 16:23 Pulse 79 10/09/20 16:23 Resp 18 10/09/20 16:23 BP 169/71 H 10/09/20 16:23 Pulse Ox 95 10/09/20 16:23 Testing Laboratory Results 10/09/20 07:50 10/09/20 07:50 Urine Color Dark Yellow 10/09/20 Unknown Urine Appearance Clear (Clear) 10/09/20 Unknown Urine pH 7.0 (4.5-7.5) 10/09/20 Unknown Ur Specific [place] 1.015 (1.000-1.030) 10/09/20 Unknown Urine Protein Negative (Negative) 10/09/20 Unknown Urine Glucose (UA) Negative (Negative) 10/09/20 Unknown Urine Ketones Trace (Negative) H 10/09/20 Unknown Urine Nitrite Negative (Negative) 10/09/20 Unknown Ur Leukocyte Esterase Negative (Negative) 10/09/20 Unknown Electrocardiogram Date: 10/08/20 Findings: + NSR @ (04)
[2020-10-09] MEDS: LORazepam 1 MG TAB PO SCH (20:48)
[2020-10-09] MEDS ORDERED: SODIUM CHLORIDE 0.65% NA SOLN 45 ML (OCEAN) PRN (21:05)
[2020-10-10] MEDS: CIPROFLOXACIN / D5W 400 MG/200 ML BAG IV SCH ×2 (03:39→14:21)
[2020-10-10] MEDS: metroNIDAZOLE 500 MG/100 ML BAG IV SCH ×3 (05:21→21:32)
--- NOTE | 2020-10-10 07:11 | History & Physical Bridge Note ---
Date of Service October 10, 2020 History & Physical Bridge Note I have examined the patient, reviewed the History & Physical and in the interval since the performance of the History & Physical I have noted the following changes of clinical significance: no changes noted Patient had a very good night he did state he has few bowel movement that had something for blood in but he has no abdominal pain and no right groin pain On examination there is no evidence of any incarcerated right inguinal hernia his abdomen is completely benign therefore we will proceed with right inguinal hernia repair open possible mesh today Permit was signed all questions were answered including risk and complication of the surgery
[2020-10-10 07:42] LABS: Hematocrit (blood only) 40.6 % (42-52); Hemoglobin 13.8 g/dL (14.0-18.0); Mean Corpuscular Hemoglobin 31.4 pg (25-34); Mean Corpuscular Volume 92.5 fL (80-100); Mean Platelet Volume 9.5 fL (7.4-10.4); Platelet Count 159 K/uL (130-400); RDW Coefficient of Variation 13.4 % (11.5-14.5); RDW Standard Deviation 45.1 fL (36.4-46.3); Red Blood Count 4.39 M/uL (4.7-6.1); White Blood Count 10.66 K/uL (4.8-10.8)
[2020-10-10 08:26] LABS: BUN Creatinine Ratio 9.7 (10-20); Calcium 8.1 mg/dl (8.5-10.1); Creatinine Clr Calc Pharmacy 75.6 ml/min; Est GFR (African American) 80.9; Est GFR (Non-African American) 69.8; Potassium 3.4 mmol/L (3.5-5.1)
[2020-10-10] MEDS ORDERED: ENOXAPARIN INJ 40 MG/0.4 ML SYR SQ SCH (09:00)
--- NOTE | 2020-10-10 09:15 | Hospitalist Progress Note ---
Date of Service October 10, 2020 Assessment & Plan (1) Inguinal hernia, right: History would suggest that perhaps he had transient incarceration of the sigmoid colon in his right inguinal hernia that spontaneously resolved over several hours. This perhaps led to transient ischemia of the distal colon leading to mild inflammation/colitis. The hernia is now reducible and his pain is markedly improved. CT abd/pelvis and mild lactic acidosis suggests he likely had transient ischemia. I do not think his colonic inflammation is infectious in etiology; history does not suggest such. Continue Cipro/flagyl for mild colitis. Of note, he received 1 dose of cefoxitin in the ER. Continue NPO for OR today for R hernia repair with mesh LR @ 125cc/hr Continue pain medications prn K low 3.4 today and ordered 1gm IV. Mag wnl Post-operative management per surgical service Labs in AM (2) Lactic acidosis: see above (3) Colitis: Suspect ischemia rather than infectious. See above. Repeat lactate pending --> now 1.0 prior to dsurgery Cipro/Flagyl as above NPO, IVF. (4) Abnormal CT scan, colon: Mucosal lesion in hepatic flexure?? Will need endoscopic evaluation in the near future for such --> discussed and now with liquid BMs since admission. Will further discuss and set up at discharge for f/u (5) Hyperlipidemia: Hold fish oil (6) BPH loc w/o ur obs/LUTS: Cont outpatient meds Follows with [facility] Urology (7) Mass of bladder: Will need nonemergent cystoscopy (8) Hypertension: hold HCTZ continue losartan (9) DVT prophylaxis: lovenox daily post-operatively updated at bedside on admission Dispo: OR this morning with Dr. Garcia Admission and Anticipated Discharge Date Admission Date: October 09, 2020 Subjective Patient seen this morning. Up and walking in the room. About to urinate before surgery. Has had multiple liquid BM since admission. Discussed recs for c-scope at d/c for eval to r/o malignancy but will further discuss tomorrow post-operatively. Can feel hernia but it is reducible. NO fever, chills, chest pain, shortness of breath, nausea or vomiting. Minimal discomfort but controlled with ordered medications. He is hopeful for discharge as soon as medically stable. Review of Systems Review of Systems: All systems reviewed & are unremarkable except as noted in HPI & below Physical Exam Constitutional: well developed and well nourished; no acute distress and no altered mental status Eyes: PERRL ENMT: external ear and nose normal, oropharynx normal Neck: trachea midline, no thyromegaly Respiratory: normal respiratory effort, lungs clear to auscultation Cardiovascular: Rate/Rhythm: regular rate and regular rhythm Heart Sounds: normal S1 and normal S2; no murmur Vessels: posterior tibial pulses present and dorsalis pedis pulses present; no JVD Extremities: no edema Gastrointestinal (Abdomen): Inspection/Auscultation: + abdomen distended (mild) and normal bowel sounds Percussion/Palpation: + abdomen tender (RLQ, scant LLQ) and + hernia (right inguinal - reducible; mildly tender over this region); no guarding, abdomen not rigid and no hepatosplenomegaly Musculoskeletal: no cyanosis or clubbing, extremities motor strength 5/5 Skin: no rashes, warm and dry Neurologic: deep tendon reflexes 2+ bilaterally and moves all extremities Psychiatric: A+Ox3, euthymic affect Lymphatic: no cervical lymphadenopathy Results & Data Results & Data ([facility]) Vital Signs (Past 12 Hours) Vital Signs Temp Pulse Pulse Resp BP BP Pulse Ox 10/10/20 07:37 36.7 C 68 18 128/66 94 10/09/20 22:59 37.1 C 87 18 130/67 92 Laboratory Results 10/10/20 10/10/20 10/09/20 Range/Units 07:18 07:18 Unknown WBC 10.66 (4.8-10.8) K/uL RBC 4.39 L (4.7-6.1) M/uL Hgb 13.8 L (14.0-18.0) g/dL Hct 40.6 L (42-52) % MCV 92.5 (80-100) fL MCH 31.4 (25-34) pg MCHC 34.0 (32-36) g/dL RDW Std Deviation 45.1 (36.4-46.3) fL RDW Coeff of Juliana 13.4 (11.5-14.5) % Plt Count 159 (130-400) K/uL MPV 9.5 (7.4-10.4) fL Sodium 142 (136-145) mmol/L Potassium 3.4 L (3.5-5.1) mmol/L Chloride 109 H (98-107) mmol/L Carbon Dioxide 28 (21-32) mmol/L Anion Gap 5.0 (3-11) BUN 10 D (7-18) mg/dl Creatinine 1.06 (0.6-1.4) mg/dl Est Cr Clr Drug Dosing 75.6 ml/min Est GFR ( Amer) 80.9 Est GFR (Non-Af Amer) 69.8 BUN/Creatinine Ratio 9.7 L (10-20) Glucose 116 H (70-99) mg/dl Lactate (0.4-2.0) mmol/L Calcium 8.1 L (8.5-10.1) mg/dl POC Urine pH Not Reportable POC Urine Nitrite Not Reportable 10/09/20 10/09/20 Range/Units 12:39 09:34 WBC (4.8-10.8) K/uL RBC (4.7-6.1) M/uL Hgb (14.0-18.0) g/dL Hct (42-52) % MCV (80-100) fL MCH (25-34) pg MCHC (32-36) g/dL RDW Std Deviation (36.4-46.3) fL RDW Coeff of Juliana (11.5-14.5) % Plt Count (130-400) K/uL MPV (7.4-10.4) fL Sodium (136-145) mmol/L Potassium (3.5-5.1) mmol/L Chloride (98-107) mmol/L Carbon Dioxide (21-32) mmol/L Anion Gap (3-11) BUN (7-18) mg/dl Creatinine (0.6-1.4) mg/dl Est Cr Clr Drug Dosing ml/min Est GFR ( Amer) Est GFR (Non-Af Amer) BUN/Creatinine Ratio (10-20) Glucose (70-99) mg/dl Lactate 2.2 H* 2.9 H* (0.4-2.0) mmol/L Calcium (8.5-10.1) mg/dl POC Urine pH POC Urine Nitrite PG Care Time/CCT Total # of Minutes Spent Total Time Spent with Patient: Total time spent is greater than 50% in coordination of care (as documented) at patient's floor/unit and/or counseling patient: Coding Level of Care Code 80511 Subseq Hosp Care Lvl 3 Diagnoses Inguinal hernia, right K40.90 Lactic acidosis E87.[address] scan, colon R93.3 Hyperlipidemia E78.5 BPH loc w/o ur obs/LUTS N40.0 Mass of bladder N32.89 Hypertension I10 DVT prophylaxis Z29.9
[2020-10-10] MEDS: POTASSIUM CHLORIDE / WTR 10 MEQ/100 ML PLCT IV ONE ×2 (09:52→14:19)
[2020-10-10] MEDS: LACTATED RINGER'S 1,000 ML IV SCH ×2 (09:52→14:20)
[2020-10-10] MEDS ORDERED: HYDROmorphone INJ 1 MG/ML SYRINGE IV PRN (09:53)
[2020-10-10] MEDS ORDERED: ONDANSETRON INJ 2 MG/ML 2 ML VIAL IV PRN (09:53)
[2020-10-10] MEDS ORDERED: LABETALOL HCL IV 5 MG/ML 20ML IV PRN (09:53)
[2020-10-10] MEDS ORDERED: ATROPINE SULFATE 0.1 MG/ML 10ML SYR IV PRN (09:53)
[2020-10-10] MEDS ORDERED: ePHEDrine sulfate 50 MG/ML AMP IV PRN (09:53)
[2020-10-10] MEDS ORDERED: PHENYLEPHRINE 100MCG/ML 5ML SYR IV PRN (09:53)
[2020-10-10 10:20] LABS: Albumin Level 2.7 gm/dl (3.4-5.0)
[2020-10-10] MEDS ORDERED: ONDANSETRON INJ 2 MG/ML 2 ML VIAL ONE ×2 (10:39→11:00)
[2020-10-10] MEDS ORDERED: MIDAZOLAM HCL 1 MG/ML 2ML VIAL ONE ×2 (10:39→11:00)
[2020-10-10] MEDS ORDERED: ROCURONIUM BROMIDE 10 MG/ML 5 ML VIAL IV ONE (10:39)
[2020-10-10] MEDS ORDERED: LIDOCAINE HCL 2% 2 ML VIAL/AMP(20MG/ML) INFIL ONE ×2 (10:39→11:00)
[2020-10-10] MEDS ORDERED: PROPOFOL IV EMULSION 10 MG/ML 20 ML VIAL IV ONE ×2 (10:39→11:00)
[2020-10-10] MEDS ORDERED: fentaNYL citrate 100 MCG/2 ML VIAL ONE ×2 (10:39→11:00)
[2020-10-10] MEDS ORDERED: DEXAMETHASONE SOD INJ 4 MG/ML VIAL ONE (11:00)
[2020-10-10] MEDS ORDERED: NEOSTIGMINE METHYLSULFATE 5 MG/5 ML SYR ONE (11:00)
[2020-10-10] MEDS ORDERED: GLYCOPYRROLATE 0.2 MG/ML VIAL ONE ×2 (11:00→11:40)
[2020-10-10] MEDS ORDERED: LARYING-O-JET KIT (LTA) ONE (11:03)
[2020-10-10] MEDS ORDERED: BACITRACIN INJ 50,000 UNIT VIAL ONE (11:06)
[2020-10-10] MEDS ORDERED: BUPIVACAINE 0.5 % 5 MG/1 ML MPF 30ML VIAL ONE (11:06)
[2020-10-10] MEDS ORDERED: ePHEDrine sulfate 50 MG/ML SYR ONE (12:13)
[2020-10-10] MEDS ORDERED: KETOROLAC 30 MG/ML VIAL ONE (12:20)
--- NOTE | 2020-10-10 12:20 | Post Operative Brief Note ---
PG Immediate Post Op with CF Date of Surgery October 10, 2020 Pre & Post Diagnosis Operation Date: 10/10/20 10:40 Pre-Op Diagnosis: Right inguinal hernia Post-Op Diagnosis: Right indirect inguinal hernia I identified the patient and participated in the time-out.: Yes Procedure Operation Date: 10/10/20 10:40 Actual Procedures p Right Indirect Inguinal Hernia Repair with mesh(Right) - Anshul Garcia MD, FACS Surgeon Anshul Garcia MD, FACS Analog Circuit Designer magaly meredith Estimated Blood Loss 10 Findings Consistent with Post-Op Diagnosis Specimens Specimen Description: A. Right Inguinal Hernia Sac
--- NOTE | 2020-10-10 12:31 | Operative Report ---
PG Post Operative Report Pre & Post Diagnosis Operation Date: 10/10/20 10:40 Pre-Op Diagnosis: Right inguinal hernia Post-Op Diagnosis: Right indirect inguinal hernia I identified the patient and participated in the time-out.: Yes Procedure Operation Date: 10/10/20 10:40 Actual Procedures p Right Indirect Inguinal Hernia Repair with mesh(Right) - Anshul Garcia MD, FACS The patient was brought into the operating theater supine position general endotracheal anesthesia right lower quadrant was prepped Betadine scrub a solution properly draped the patient has antibiotics on board timeout was had patient was identified preemptive local 0.5% Marcaine was used to infiltrate 2 fingerbreadths medial to the anterior superior iliac crest subfascially the external incision approximately 3 inches long was made parallel to the inguinal ligament the pubic subcutaneous tissue some prominent veins were divided with hemostats and ligated with 2-0 silk the patient had a moderate amount of subcuticular fatty tissue until we got to the external fascia once we are able to see this in dissected out to the external ring there seems to be scar tissue in that area partially incarcerated tissue at the external ring at this time the patient had come in with an incarcerated inguinal hernia yesterday we had planned to operate on him electively in approximately 2 weeks for intermittent pain in the transversalis fascia. She had a Marlex mesh was then brought up onto the field cut appropriately sutured to the symphysis pubis medial to the conjoined tendon inferior to the shelving portion of the abdomen cutting in 2 limbs placed in the right internal ring at the base subfascially to the external fascia. Once we are finished the internal ring, made of a hemostat. The wound was then closed by using 2-0 interrupted silk sutures for 3-0 interrupted silk sutures closing the external fascia on top of the cord and the mesh pain attention nonspecific the external ring 2 months 2-0 Dexon subcutaneous dot for skin edges dressing was applied procedure was tolerated well by the patient estimated blood loss 10 cc addendum at this point more local was used underneath the external fascia which was opened along the course of its fibers were able then to elevate the cord and structures next identify the patient dissecting the tissue away from the cord was able to see the patient had a very long indirect sac which we opened place the finger near went to the abdomen without any difficulty and there was no really cloudy fluid of bloody fluid appreciated in once we entered the abdomen at this point we resected the sac ligated the base with 2-0 silk the cord of the state was freed from the indirect sac at the internal ring using 3-0 silk sutures reapproximated the transversalis fascia at the internal ring just not up the internal ring and similarly we used some interrupted sutures to approximate the Addendum Magaly Diaz present throughout the case and helped with retraction exposure and wound closure Surgeon Anshul Garcia MD, FACS Demand Generator Manager magaly meredith Estimated Blood Loss 10 Findings Consistent with Post-Op Diagnosis Specimens hernia sac Description of Procedure merda I attest to the content of the Intraoperative Record and any orders documented therein. Any exceptions are noted below.
[2020-10-10] MEDS: fentaNYL citrate 100 MCG/2 ML VIAL IV PRN ×2 (12:52→12:57)
--- NOTE | 2020-10-10 13:26 | Anesthesiology Progress Note ---
Date of Service October 10, 2020 Anesthesia Post Procedure Vital Signs Vital Signs: Temp Pulse Pulse Pulse Pulse Resp BP 10/10/20 13:05 36.9 C 80 14 10/10/20 12:55 80 16 10/10/20 12:45 78 18 10/10/20 12:39 36.5 C 86 16 10/10/20 10:37 71 18 10/10/20 07:37 36.7 C 68 18 10/09/20 22:59 37.1 C 87 18 130/67 10/09/20 20:50 36.8 C 10/09/20 16:23 36.9 C 79 18 169/71 H 10/09/20 13:41 36.7 C 77 18 152/87 H BP Pulse Ox 10/10/20 13:05 129/67 99 10/10/20 12:55 129/76 99 10/10/20 12:45 132/77 100 10/10/20 12:39 132/70 100 10/10/20 10:37 143/73 H 96 10/10/20 07:37 128/66 94 10/09/20 22:59 92 10/09/20 20:50 10/09/20 16:23 95 10/09/20 13:41 95 Pain Intensity Abdomen: Pain Intensity: 2 Head: Pain Intensity: 4 Transfer of Care Handoff Completed per policy Notes Mental Status: alert / awake / arousable Patient Amnestic to Procedure: Yes Nausea / Vomiting: adequately controlled Pain: adequately controlled Airway Patency, RR, SpO2: stable & adequate BP & HR: stable & adequate Hydration State: stable & adequate Anesthetic Complications: no major complications apparent and Pt Satisfied with anesthetic care
[2020-10-10] MEDS ORDERED: oxyCODONE/ACETAMINOPHEN 5mg/325mg TAB PO PRN (14:17)
[2020-10-10] MEDS ORDERED: MoRPHine SULFATE 2 MG/ML CARP IV PRN (14:17)
[2020-10-10] MEDS ORDERED: MoRPHine SULFATE 4 MG/ML 1 ML CARP\\VIAL IV PRN (14:17)
[2020-10-10] MEDS: FINASTERIDE 5 MG TAB PO SCH (14:20)
[2020-10-10] MEDS: PARoxetine HCL 20 MG TAB PO SCH (14:20)
[2020-10-10] MEDS: MULTIVITAMIN TAB PO SCH (14:21)
[2020-10-10] MEDS: LOSARTAN POTASSIUM 50 MG TAB PO SCH (14:21)
[2020-10-10] MEDS ORDERED: NSS + 20MEQ KCL 20 MEQ/1,000 ML BAG IV SCH (14:30)
[2020-10-10] MEDS: LORazepam 1 MG TAB PO SCH (21:32)
[2020-10-11] MEDS ORDERED: COUGH DROP (SUGAR FREE) LOZ 24 LOZ/1 BOX BUCCAL PRN (00:33)
[2020-10-11] MEDS: oxyCODONE/ACETAMINOPHEN 5mg/325mg TAB PO PRN ×2 (03:11→08:07)
[2020-10-11] MEDS: CIPROFLOXACIN / D5W 400 MG/200 ML BAG IV SCH (03:27)
[2020-10-11] MEDS: metroNIDAZOLE 500 MG/100 ML BAG IV SCH (06:03)
--- NOTE | 2020-10-11 07:46 | Surgery Progress Note ---
Date of Service October 11, 2020 Assessment & Plan (1) Inguinal hernia, right: POD 1 RIH repair seen by Dr. Jose alford for d/c instructions written Admission and Anticipated Discharge Date Admission Date: October 09, 2020 Subjective tolerating diet, minimal pain Physical Exam Gastrointestinal (Abdomen): Inspection/Auscultation: + abdominal surgical incision (clean, dry) Percussion/Palpation: abdomen soft Results & Data [facility] Vital Signs (Past 12 Hours) Vital Signs Temp Pulse Resp BP Pulse Ox 10/11/20 07:34 36.5 C 79 16 119/74 98 10/10/20 22:26 36.6 C 99 H 18 134/77 92 PG Care Time/CCT Total # of Minutes Spent Total Time Spent with Patient: Total time spent is greater than 50% in coordination of care (as documented) at patient's floor/unit and/or counseling patient: Coding Level of Care Code None Diagnoses Inguinal hernia, right K40.90
[2020-10-11] MEDS: LOSARTAN POTASSIUM 50 MG TAB PO SCH (08:07)
[2020-10-11] MEDS: MULTIVITAMIN TAB PO SCH (08:07)
[2020-10-11] MEDS: FINASTERIDE 5 MG TAB PO SCH (08:07)
[2020-10-11] MEDS: PARoxetine HCL 20 MG TAB PO SCH (08:07)
--- NOTE | 2020-10-11 09:22 | Discharge Summary ---
Date of Service October 11, 2020 Admission HPI Per Admitting Provider Garry 70yo male with HTN and BPH along with long-standing right-sided inguinal hernia who presented this am after developing severe RLQ and LLQ abdominal pain this am at 0400. Pain awoke him from sleep. Pain was sharp, intense, and came "in waves." The pain was worst over the inguinal hernia on the right. The hernia was "firm" to touch and he tried pushing the bowel up into the abdomen. It was difficult initially but ultimately it seemed to slide back up. He had diaphoresis, chills, subjective fever and nausea. Never had emesis. He felt like he had to have a bowel movement and went back/forth from bed to bathroom without any success. He finally came to the ER this am to be evaluated. While being worked up he had a large liquid, nonbloody bowel movement. Following this and IV dilaudid his pain is resolved and he "feels nearly back to normal." Coincidentally he saw Dr Rogelio Garcia yesterday in gen surgery clinic for the right inguinal hernia and was to have inguinal hernia repair w/ mesh later this month. Otherwise he has been in his usual health with no GI or complaints. 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 Admission Exam Per Admitting Provider Chief Complaint: abdominal pain Primary Care Provider: MD Garry Virgen 70yo male with HTN and BPH along with long-standing right-sided inguinal hernia who presented this am after developing severe RLQ and LLQ abdominal pain this am at 0400. Pain awoke him from sleep. Pain was sharp, intense, and came "in waves." The pain was worst over the inguinal hernia on the right. The hernia was "firm" to touch and he tried pushing the bowel up into the abdomen. It was difficult initially but ultimately it seemed to slide back up. He had diaphoresis, chills, subjective fever and nausea. Never had emesis. He felt like he had to have a bowel movement and went back/forth from bed to bathroom without any success. He finally came to the ER this am to be evaluated. While being worked up he had a large liquid, nonbloody bowel movement. Following this and IV dilaudid his pain is resolved and he "feels nearly back to normal." Coincidentally he saw Dr Rogelio Garcia yesterday in gen surgery clinic for the right inguinal hernia and was to have inguinal hernia repair w/ mesh later this month. Otherwise he has been in his usual health with no GI or complaints. 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 Principal Diagnosis RIGHT INGUINAL HERNIA Discharge Exam Constitutional well developed and well nourished; no acute distress and no altered mental status Eyes PERRL ENMT external ear and nose normal, oropharynx normal Neck trachea midline, no thyromegaly Respiratory normal respiratory effort, lungs clear to auscultation Cardiovascular Rate/Rhythm: regular rate and regular rhythm Heart Sounds: normal S1 and normal S2; no murmur Vessels: posterior tibial pulses present and dorsalis pedis pulses present; no JVD Extremities: no edema Gastrointestinal (Abdomen) Inspection/Auscultation: normal bowel sounds; abdomen not distended Percussion/Palpation: + abdomen tender (minimally around abdominal incion site, no drainage) and abdomen soft; no guarding, abdomen not rigid and no hepatosplenomegaly Musculoskeletal no cyanosis or clubbing, extremities motor strength 5/5 Skin no rashes, warm and dry Neurologic deep tendon reflexes 2+ bilaterally and moves all extremities Psychiatric A+Ox3, euthymic affect Lymphatic no cervical lymphadenopathy Discharge Data Allergies Allergy/AdvReac Type Severity Reaction Status Date / Time Penicillins Allergy Mild RASH Verified 10/09/20 07:27 Consultations 10/09/20 11:12 ED Decision to Admit Stat 10/09/20 11:30 Consult General Surgery Routine Procedures Performed Operation Date: 10/10/20 10:40 Actual Procedures p Right Indirect Inguinal Hernia Repair with mesh(Right) - Anshul Garcia MD, FACS Ordered Studies 10/08 cxr 10/09/20 07:49 CT abd pelvis IV con only Stat Hospital Course (1) Inguinal hernia, right: He had been seen by Dr. Garcia on 10/08 and planned for elective repair in the coming weeks. History would suggest that perhaps he had transient incarceration of the sigmoid colon in his right inguinal hernia that spontaneously resolved over several hours. This perhaps led to transient ischemia of the distal colon leading to mild inflammation/colitis. Hernia was now reducible on admission and pain was markedly improved. CT abd/pelvis and mild lactic acidosis suggests he likely had transient ischemia. Patient was admitted for IVF, pain control Patient was placed on cipro/flagyl for mild colitis (got dose of cefoxitin in ER -- could also be viral etiology) --> discussed with Dr. Garcia and abx not felt needed at discharge I do not think his colonic inflammation is infectious in etiology; history does not suggest such General Surgery was consulted S/P RIGHT INGUINAL HERNIA REPAIR with MESH with Dr. Ling on 10/11 --> per- operative report there appears to have been an area of partially incarcerated tissue at the external ring Feeling great post-operatively, minimal discomfort and ready for discharge To have follow up with Dr. Garcia outpatient in next 1-2 weeks. Sent with pain medications. No abx. (2) Lactic acidosis: see above (3) Colitis: Suspect ischemia rather than infectious. See above. Repeat lactic wnl. See above (4) Abnormal CT scan, colon: Mucosal lesion in hepatic flexure?? Will need endoscopic evaluation in the near future for such --> discussed and now with liquid BMs since admission but was only passing gas prior to d/c. Discussed with patient Will further discuss and set up at discharge for f/u (5) Hyperlipidemia: Hold fish oil (6) BPH loc w/o ur obs/LUTS: Cont outpatient meds Follows with [facility] [place] Urology and recommended that he have follow up with Dr. Cerna for further evaluation of bladder mass seen on CTAP on admission (7) Mass of bladder: Will need nonemergent cystoscopy (8) Hypertension: held HCTZ -- can resume tomorrow continued losartan (9) DVT prophylaxis: lovenox daily post-operatively Discharged Total Time Total Time Spent Total Time Spent (In Minutes): 60 Discharge Plan Discharge Items Patient Disposition: Home - Self-Care Reason For Visit: ISCHEMIC COLITIS DUE TO PROBABLE RESOLVED Discharge Diagnosis: repair of right inguinal hernia Goals: You have been hospitalized for an urgent problem which required surgery. During your stay at [facility], we have made an effort to correct the problem that brought you to the hospital while keeping you as comfortable as possible. Surgery and medications were used to bring your condition under control and your discharge instructions will include directions for any medications you should take after leaving the hospital. Please make sure to follow the advice of your surgeon regarding follow up with the surgeon and with your primary care provider. Activity: As commented below Lifting: No more than 10 pounds Bathing Comment: can shower Tuesday, remove bandage before showering Driving/Machine Use: in 1 week Non-emergency contact: Surgeon Call non-emergency contact if: you have any medication questions, your pain is not controlled, you have a fever, your temperature is above 101.5 and your wound has increased redness Follow-up/Referrals: Robin Cerna MD [Physician] - (1-2 weeks re: bladder nodule) Anshul Garcia MD, FACS [Surgeon] - (Call the office to make an appt in 1 week) Saeed Trujillo MD [Primary Care Provider] - Diet: Regular Addtl Attending Provider Instructions: You have been hospitalized for abdominal pain and required hernia repair with Dr. Garcia. You will need to call their office for follow up in 1 week. You were placed on antibiotics empirically for a possible mild colitis but this could have been viral as well and per surgery antibiotics are not recommended for continued at discharge. --Please note, if you develop fever, increased abdominal pain, or nausea/inability to keep up with oral intake you will need to call PCP VIGNESH or return to the emergency department. You were sent a prescription for pain medication at discharge to use for breakthrough pain but may use tylenol for all non-severe pain. Please do not exceed 3,000mg in 24 hours of acetaminophen. Please note pain medications can cause constipation and you may use over the counter miralax or colace as needed to help keep bowels regular. There was an area of narrowing on the colon on initial imaging and it is recommended that you follow up with a colonoscopy for further evaluation which can be arranged by your primary care provider. There is also a nodule along your bladder which should undergo further investigation by Urology as an outpatient to ensure no malignancy with a cystoscopy. Please follow up with primary care provider in the next week to monitor your progress. It has been a pleasure being a part of the medical team providing for you during your hospitalization. Take care! Pending Studies at Discharge: Yes Studies:: Blood cultures -- no growth to date Stand-Alone Forms: My [facility], Opioid Pain Management Medications and DC Order Prescriptions: New oxycodone-acetaminophen [Percocet] 5-325 mg tablet 1 - 2 tab PO Q4H PRN (Reason: pain, initial therapy, max 6 daily) Qty: 15 RF: 0 Continued finasteride [Proscar] 5 mg tablet 5 mg PO DAILY Qty: 90 RF: 3 losartan [Cozaar] 50 mg tablet 50 mg PO DAILY RF: 0 sildenafil [Viagra] 50 mg tablet 50 mg PO DAILY PRN (Reason: before sex) RF: 0 triamterene-hydrochlorothiazid [Maxzide-25mg] 37.5-25 mg tablet 0.5 tab PO DAILY RF: 0 lorazepam [Ativan] 1 mg tablet 1 mg PO QPM RF: 0 paroxetine HCl [Paxil] 40 mg tablet 40 mg PO DAILY RF: 0 multivitamin Tablet 1 tab PO DAILY RF: 0 omega 1-lqz-ojt-fish oil [Fish Oil] 1,000 mg (120 mg-180 mg) Capsule 1 cap PO DAILY RF: 0 aspirin 81 mg Tablet,Delayed Release (Dr/Ec) 81 mg PO DAILY RF: 0 Discharge Orders: Discharge Order (Routine); Ordered 10/11/20 Ordered By: Bertha Anne/Other Patient Handouts: Understanding Deep Vein Thrombosis, DVT Post Op Prevention, Preventing Deep Vein Thrombosis Admission Data Admit Date/Time: 10/09/20 11:30 Attending Provider: Frankie Correa Admit Provider: [employer] Primary Care Provider: Saeed Trujillo Other Providers: [employer] ; Anshul Garcia Other Interventions: Discharge Summary Assessment (RN) Last Done: 10/11/20 11:06 Coding Level of Care Code D/C Day Management >30 mins Diagnoses Inguinal hernia, right K40.90 Lactic acidosis E87.[address] scan, colon R93.3 Hyperlipidemia E78.5 BPH loc w/o ur obs/LUTS N40.0 Mass of bladder N32.89 Hypertension I10 DVT prophylaxis Z29.9
[2020-10-11 09:24] LABS: Hematocrit (blood only) 40.8 % (42-52); Hemoglobin 14.1 g/dL (14.0-18.0); Mean Corpuscular Hemoglobin 32.3 pg (25-34); Mean Corpuscular Hgb Conc 34.6 g/dL (32-36); Mean Corpuscular Volume 93.6 fL (80-100); Mean Platelet Volume 9.6 fL (7.4-10.4); Platelet Count 192 K/uL (130-400); RDW Coefficient of Variation 13.9 % (11.5-14.5); RDW Standard Deviation 47.6 fL (36.4-46.3); Red Blood Count 4.36 M/uL (4.7-6.1); White Blood Count 14.66 K/uL (4.8-10.8)
[2020-10-11 09:41] LABS: BUN Creatinine Ratio 9.6 (10-20); Calcium 8.6 mg/dl (8.5-10.1); Creatinine Clr Calc Pharmacy 61.7 ml/min; Est GFR (African American) 63.2; Est GFR (Non-African American) 54.5; Potassium 3.5 mmol/L (3.5-5.1)
--- NOTE | 2020-10-20 13:18 | Coding Query ---
CODING QUERY To promote full compliance with coding requirements relating to patient care, provider participation is requested in all cases of assembly and packing supervisor uncertainty. Please assist us with the question(s) below: Coding Question(s): Possible transient ischemia of the distal colon leading to mild inflammation/colitis is documented. Please specify below, in your clinical opinion. (xx ) Possible Acute Ischemic Colitis of the distal colon was monitored/ and/or treated ( ) Possible Chronic Ischemic Colitis of the distal colon was monitored and/or treated ( ) Possible Unspecified Ischemic Colitis of the distal colon was monitored and/or treated ( ) Other: Please Specify ( ) Ischemic Colitis was Not monitored and/or treated Physician's Response(s): Thank you Ana Cristina Laguna Principal Diagnosis: "that condition established after study, to be chiefly responsible for occasioning the admission of the patient to the hospital for care." Co-Existing Principal Diagnosis: "when two or more diagnoses equally meet the criteria for principal diagnosis as determined by the circumstances of admission, diagnostic work up, and/or therapy provided, and the Alphabetic Index, Tabular List, or another coding guideline does not provide sequencing direction, any one of the diagnoses may be sequenced first." "When the physician has documented what appears to be a current diagnosis in the body of the record, but has not included the diagnosis in the final diagnostic statement, the physician should be asked whether the diagnosis should be added." (Source [facility] 2 QTR90. p3-4) [place]
== END 2020-10-11 11:45 | disposition home or self-care (01) | DRG 350 ==
LOC: ED 06:34 → 3N 11:30 → SUATTDRO 11:30 → 3N 13:11